=== PATIENT | male | born 1935 | race Caucasian/White ===

== ENCOUNTER 2016-09-17 13:21 | Day surgery (SDC) | payer MEDICARE, OTHER ==
--- NOTE | ~2016-09-17 | EGD ---
EGD REPORT [facility] [address] [id number] NAME: DOUGLAS PORTILLO : 37 [place]US : [place] [facility] [place] [id number] AGE: 81 ADM/REG DATE : 09/17/16 MR#: [id number] REPORT SERV DATE: 09/17/16 DICTATED BY: MICHAEL COLMENARES DATE: 09/17/16 REPORT STATUS : Draft TRANSCRIBED BY: [employer] DATE: 09/17/16 [facility] Patient Name: Douglas Portillo Date of : 1935 Attending MD: MICHAEL COLMENARES MD Procedure Date No Time: 09/17/2016 Procedure: Upper GI endoscopy Indications: Gastro-esophageal reflux disease, Anorexia Referring MD: SARTHAK MCCLAIN Medicines: See the Anesthesia note for documentation of the administered medications Complications: No immediate complications. Procedure: Pre-Anesthesia Assessment: - ASA Grade Assessment: III - A patient with severe systemic disease. After obtaining informed consent, the endoscope was passed under direct vision. Throughout the procedure, the patient's blood pressure, pulse, and oxygen saturations were monitored continuously. The GIF H190 [id number] was introduced through the mouth, and advanced to the second part of duodenum. The upper GI endoscopy was accomplished without difficulty. The patient tolerated the procedure well. Findings: The 2nd part of the duodenum was normal. Biopsies were taken with a cold forceps for histology. The gastric antrum was normal. Biopsies were taken with a cold forceps for histology. Diffuse nodular mucosa was found in the gastric body. Biopsies were taken with a cold forceps for histology. The cardia and gastric fundus were normal on retroflexion. A small hiatus hernia was present. Impression: - Normal 2nd part of the duodenum. Biopsied. - Normal antrum. Biopsied. - Nodular mucosa in the gastric body. Biopsied. - Hiatus hernia. Recommendation: - Patient has a contact number available for emergencies. The signs and symptoms of potential delayed complications were discussed with the patient. Return to normal activities tomorrow. Written discharge instructions were provided to the patient. - Regular diet. EGD REPORT [address] [address] NAME: DOUGLAS PORTILLO : [birth year] [place]US : [place] [facility] [place] [id number] AGE: 81 ADM/REG DATE : 09/17/16 MR#: [id number] REPORT SERV DATE: 09/17/16 DICTATED BY: MICHAEL COLMENARES DATE: 09/17/16 REPORT STATUS : Draft TRANSCRIBED BY: [email or web address] DATE: 09/17/16 - Continue present medications. - FOR YOUR BIOPSY RESULTS: Please go to [email or web address] and register to receive your results via the portal. Your biopsy results will be posted there in about 7 to 10 days. IF you do not see result in 10 days, call office. Procedure Code(s): --- Professional --- 57044, Esophagogastroduodenoscopy, flexible, transoral; with biopsy, single or multiple Diagnosis Code(s): --- Professional --- K31.9, Disease of stomach and duodenum, unspecified K44.9, Diaphragmatic hernia without obstruction or gangrene K21.9, Gastro-esophageal reflux disease without esophagitis R63.0, Anorexia CPT copyright 2013 [employer]. All rights reserved. The codes documented in this report are preliminary and upon security alarm installer review may be revised to meet current compliance requirements. Michael Colmenares MD MICHAEL COLMENARES MD 09/17/2016 2:48 PM This report has been signed electronically. Number of Addenda: 0 Note Initiated On: 09/17/2016 2:38 PM Scope Withdrawal Time 0 hours 0 minutes 0 seconds [address] [place] [id number]
--- NOTE | ~2016-09-17 | EGD ---
EGD REPORT [facility] [address] [address] NAME: DOUGLAS PORTILLO : 37 STATUS : REG [facility] [place] PAT#: [id number] AGE: 81 ADM/REG DATE : 09/17/16 MR#: [id number] REPORT SERV DATE: 09/17/16 DICTATED BY: MICHAEL COLMENARES DATE: 09/17/16 REPORT STATUS : Draft TRANSCRIBED BY: [employer] DATE: 09/17/16 [facility] Patient Name: Douglas Portillo Date of : 1935 Attending MD: MICHAEL COLMENARES MD Procedure Date No Time: 09/17/2016 Procedure: Colonoscopy Indications: High risk colon cancer surveillance: Personal history of colon cancer (Last colon 08/2014) Referring MD: SARTHAK MCCLAIN Medicines: See the Anesthesia note for documentation of the administered medications Complications: No immediate complications. Procedure: Pre-Anesthesia Assessment: - ASA Grade Assessment: III - A patient with severe systemic disease. After I obtained informed consent, the scope was passed under direct vision. Throughout the procedure, the patient's blood pressure, pulse, and oxygen saturations were monitored continuously. The PCF H190L [id number] was introduced through the anus and advanced to the terminal ileum, with identification of the appendiceal orifice and IC valve. The colonoscopy was performed without difficulty. The patient tolerated the procedure well. The quality of the bowel preparation was adequate. Findings: The perianal and digital rectal examinations were normal. Normal colocolo anastomosis Internal hemorrhoids were found during retroflexion and were medium-sized. A sessile polyp was found in the ascending colon. The polyp was small in size. The polyp was removed with a cold biopsy forceps. Resection and retrieval were complete. A sessile polyp was found in the sigmoid colon. The polyp was 10 mm in size. The polyp was removed with a hot snare. Resection and retrieval were complete. A sessile polyp was found in the descending colon. The polyp was small in size. The polyp was removed with a cold biopsy forceps. Resection and retrieval were complete. A sessile polyp was found in the sigmoid colon. The polyp was 8 mm in size. The polyp was removed with a cold snare. Resection and retrieval were complete. Impression: - Normal colocolo anastomosis EGD REPORT [facility] [address] [place]. [address] NAME: DOUGLAS PORTILLO : 37 STATUS : REG [facility]#: [id number] AGE: 81 ADM/REG DATE : 09/17/16 MR#: [id number] REPORT SERV DATE: 09/17/16 DICTATED BY: MICHAEL COLMENARES DATE: 09/17/16 REPORT STATUS : Draft TRANSCRIBED BY: [employer] DATE: 09/17/16 - Internal hemorrhoids. - One small polyp in the ascending colon. Resected and retrieved. - One 10 mm polyp in the sigmoid colon. Resected and retrieved. - One small polyp in the descending colon. Resected and retrieved. - One 8 mm polyp in the sigmoid colon. Resected and retrieved. Recommendation: - Patient has a contact number available for emergencies. The signs and symptoms of potential delayed complications were discussed with the patient. Return to normal activities tomorrow. Written discharge instructions were provided to the patient. - Regular diet. - Continue present medications. - Repeat colonoscopy for surveillance based on pathology results. - FOR YOUR BIOPSY RESULTS: Please go to [email or web address] and register to receive your results via the portal. Your biopsy results will be posted there in about 7 to 10 days. IF you do not see result in 10 days, call office. Procedure Code(s): --- Professional --- 41390, Colonoscopy, flexible, proximal to splenic flexure; with removal of tumor(s), polyp(s), or other lesion(s) by snare technique 99366, 59, Colonoscopy, flexible, proximal to splenic flexure; with biopsy, single or multiple Diagnosis Code(s): --- Professional --- K64.8, Other hemorrhoids D12.4, Benign neoplasm of descending colon D12.5, Benign neoplasm of sigmoid colon D12.2, Benign neoplasm of ascending colon Z85.038, Personal history of other malignant neoplasm of large intestine CPT copyright 2013 [employer] [employer]. All rights reserved. The codes documented in this report are preliminary and upon dental service technician review may be revised to meet current compliance requirements. Michael Colmenares MD EGD REPORT [facility] [address] [id number] NAME: DOUGLAS PORTILLO : 37 STATUS : REG [facility] [place] PAT#: [id number] AGE: 81 ADM/REG DATE : 09/17/16 MR#: [id number] REPORT SERV DATE: 09/17/16 DICTATED BY: MICHAEL COLMENARES DATE: 09/17/16 REPORT STATUS : Draft TRANSCRIBED BY: [employer] DATE: 09/17/16 MICHAEL COLMENARES MD 09/17/2016 3:11 PM This report has been signed electronically. Number of Addenda: 0 Note Initiated On: 09/17/2016 2:36 PM Scope Withdrawal Time 0 hours 16 minutes 29 seconds [id number] [id number]
--- NOTE | ~2016-09-17 | EGD ---
EGD REPORT [facility] [address] [address] NAME: DOUGLAS PORTILLO : 37 STATUS : REG [facility] [place] PAT#: [id number] AGE: 81 ADM/REG DATE : 09/17/16 MR#: [id number] REPORT SERV DATE: 09/17/16 DICTATED BY: MICHAEL COLMENARES DATE: 09/17/16 REPORT STATUS : Draft TRANSCRIBED BY: [employer] DATE: 09/17/16 [facility] Patient Name: Douglas Portillo Date of : 1935 Attending MD: MICHAEL COLMENARES MD Procedure Date No Time: 09/17/2016 Procedure: Colonoscopy Indications: High risk colon cancer surveillance: Personal history of colon cancer (Last colon 08/2014) Referring MD: SARTHAK MCCLAIN Medicines: See the Anesthesia note for documentation of the administered medications Complications: No immediate complications. Procedure: Pre-Anesthesia Assessment: - ASA Grade Assessment: III - A patient with severe systemic disease. After I obtained informed consent, the scope was passed under direct vision. Throughout the procedure, the patient's blood pressure, pulse, and oxygen saturations were monitored continuously. The PCF H190L [id number] was introduced through the anus and advanced to the terminal ileum, with identification of the appendiceal orifice and IC valve. The colonoscopy was performed without difficulty. The patient tolerated the procedure well. The quality of the bowel preparation was adequate. Findings: The perianal and digital rectal examinations were normal. Normal colocolo anastomosis Internal hemorrhoids were found during retroflexion and were medium-sized. A sessile polyp was found in the ascending colon. The polyp was small in size. The polyp was removed with a cold biopsy forceps. Resection and retrieval were complete. A sessile polyp was found in the sigmoid colon. The polyp was 10 mm in size. The polyp was removed with a hot snare. Resection and retrieval were complete. A sessile polyp was found in the descending colon. The polyp was small in size. The polyp was removed with a cold biopsy forceps. Resection and retrieval were complete. A sessile polyp was found in the sigmoid colon. The polyp was 8 mm in size. The polyp was removed with a cold snare. Resection and retrieval were complete. Impression: - Normal colocolo anastomosis EGD REPORT [facility] [address] [place]. [address] NAME: DOUGLAS PORTILLO : 37 STATUS : REG [facility]#: [id number] AGE: 81 ADM/REG DATE : 09/17/16 MR#: [id number] REPORT SERV DATE: 09/17/16 DICTATED BY: MICHAEL COLMENARES DATE: 09/17/16 REPORT STATUS : Draft TRANSCRIBED BY: [employer] DATE: 09/17/16 - Internal hemorrhoids. - One small polyp in the ascending colon. Resected and retrieved. - One 10 mm polyp in the sigmoid colon. Resected and retrieved. - One small polyp in the descending colon. Resected and retrieved. - One 8 mm polyp in the sigmoid colon. Resected and retrieved. Recommendation: - Patient has a contact number available for emergencies. The signs and symptoms of potential delayed complications were discussed with the patient. Return to normal activities tomorrow. Written discharge instructions were provided to the patient. - Regular diet. - Continue present medications. - Repeat colonoscopy for surveillance based on pathology results. - FOR YOUR BIOPSY RESULTS: Please go to [email or web address] and register to receive your results via the portal. Your biopsy results will be posted there in about 7 to 10 days. IF you do not see result in 10 days, call office. Procedure Code(s): --- Professional --- 95546, Colonoscopy, flexible, proximal to splenic flexure; with removal of tumor(s), polyp(s), or other lesion(s) by snare technique 23169, 59, Colonoscopy, flexible, proximal to splenic flexure; with biopsy, single or multiple Diagnosis Code(s): --- Professional --- K64.8, Other hemorrhoids D12.4, Benign neoplasm of descending colon D12.5, Benign neoplasm of sigmoid colon D12.2, Benign neoplasm of ascending colon Z85.038, Personal history of other malignant neoplasm of large intestine CPT copyright 2013 [employer] [place] [employer]. All rights reserved. The codes documented in this report are preliminary and upon health information coder review may be revised to meet current compliance requirements. Michael Colmenares MD EGD REPORT [facility] [address] [address] NAME: DOUGLAS PORTILLO : 37 STATUS : REG [facility] [place] PAT#: [id number] AGE: 81 ADM/REG DATE : 09/17/16 MR#: [id number] REPORT SERV DATE: 09/17/16 DICTATED BY: MICHAEL COLMENARES DATE: 09/17/16 REPORT STATUS : Draft TRANSCRIBED BY: [employer] DATE: 09/17/16 MICHAEL COLMENARES MD 09/17/2016 3:11 PM This report has been signed electronically. Number of Addenda: 0 Note Initiated On: 09/17/2016 2:36 PM Scope Withdrawal Time 0 hours 16 minutes 29 seconds [address] [id number]
[~2016-09-17 13:21] MED LIST: ACET500CAP PO; ADVIL MIGRAI200 MG PO; ADVIL PO; ALKA-SELTZER O1 EACH PO; ALKA-SELTZER PO; ASAB PO; AUG875 PO; CELEXA20 PO; ENZALUTAMIDE PO; EXELON9.5T TOP; FERROUS SULF325 M1 PO; FLORASTOR250 MG PO; FLUCON1 PO; IMDUR30 PO; IRON PO; KLONO5 PO; KLONOPIN WAF0.25 MG PO; LEXAPRO10 PO; LUPRON DEPOT7.5 MG IM; LUPRON IM; LUPRON IN; LUPRON INJECTION; MIRALAX POWDER1 PKT PO; NAMENXR28 PO; NEUR300 PO; NEXIUM40 PO; NORCO1 TA1 PO; P1 PO; P5 PO; PRIN20 PO; PROSTEON PO; ROCEPH IM; TRILEP150 PO; TRILEP300 PO; VESICARE10 MG PO; ZESTRIL5 MG PO; ZOCOR20 PO; [UNRECOGNIZED DRUG - OTHER]; [UNRECOGNIZED DRUG - OTHER] PO
== END 2016-09-17 23:59 | disposition home or self-care (01) ==
LOC: DMU 13:21
PROVIDERS: Internal Medicine Gastroenterology
PROC: 0DB98ZX Excision of Duodenum, Via Natural or Artificial Opening Endoscopic, Diagnostic (ICD-10-PCS; 2016-09-17)
PROC: 0DB68ZX Excision of Stomach, Via Natural or Artificial Opening Endoscopic, Diagnostic (ICD-10-PCS; 2016-09-17)
PROC: 0DBK8ZX Excision of Ascending Colon, Via Natural or Artificial Opening Endoscopic, Diagnostic (ICD-10-PCS; principal; 2016-09-17 14:30)
PROC: 0DBM8ZX Excision of Descending Colon, Via Natural or Artificial Opening Endoscopic, Diagnostic (ICD-10-PCS; 2016-09-17 14:30)
PROC: 0DBN8ZZ Excision of Sigmoid Colon, Via Natural or Artificial Opening Endoscopic (ICD-10-PCS; 2016-09-17 14:30)
DX: Z12.11 Encounter for screening for malignant neoplasm of colon (principal); D12.4 Benign neoplasm of descending colon; D12.5 Benign neoplasm of sigmoid colon; K64.8 Other hemorrhoids; K44.9 Diaphragmatic hernia without obstruction or gangrene; K31.9 Disease of stomach and duodenum, unspecified; K21.9 Gastro-esophageal reflux disease without esophagitis; Z85.038 Personal history of other malignant neoplasm of large intestine; G47.33 Obstructive sleep apnea (adult) (pediatric); I10 Essential (primary) hypertension; M19.90 Unspecified osteoarthritis, unspecified site; F32.9 Major depressive disorder, single episode, unspecified; F41.9 Anxiety disorder, unspecified; Z88.5 Allergy status to narcotic agent; F03.90 Unspecified dementia, unspecified severity, without behavioral disturbance, psychotic disturbance, mood disturbance, and anxiety
CPT/HCPCS: 88305